=== PATIENT | female | born 1985 | race Hispanic/Latino ===

== ENCOUNTER → 2019-02-14 | Day surgery (SDC) | payer OTHER ==
[~2019-02-14] MED LIST: GLUCAGON FOR INJ 1 MG VIAL ONE; PROPOFOL IV EMULSION 10 MG/ML 50 ML VIAL ONE
--- OUTSIDE RECORDS SUMMARY | 2019-02-14 11:36 | XMS REPORT ---
[facility] Address Unknown Phone Unavailable Care Team Providers Care Staff Antisubmarine Officer Name Role Phone Unavailable Unavailable Payers Payer Name Policy Type Policy Number Effective Date Expiration Date Problems This patient has no known problems. Allergies, Adverse Reactions, Alerts Allergy Name Allergy Type Status Severity Reaction(s) Onset Date Inactive Date Treating Clinician Comments No Known Allergies DA Active U 2017-10-12 00:00:00 Medications This patient has no known medications. Results Test Description Test Time Test Comments Text Results Atomic Results Result Comments URINALYSIS COMPLETE 2019-02-04 20:15:00 UA COLOR (test code=COLU) YELLOW YELLOW UA APPEARANCE (test code=APPU) CLEAR CLEAR UA GLUCOSE DIPSTICK (test code=DGLUU) norm mg/dL NEGATIVE UA BILIRUBIN DIPSTICK (test code=BILU) NEGATIVE mg/dL NEGATIVE UA KETONE DIPSTICK (test code=KETU) neg mg/dL NEGATIVE UA SPECIFIC GRAVITY (test code=SGU) 1.020 1.001-1.035 UA BLOOD DIPSTICK (test code=ETIENNE) 25 (1+) Jaiml/uL NEGATIVE UA PH DIPSTICK (test code=JOHN) 5.0 5.0-8.0 UA PROTEIN DIPSTICK (test code=PROU) neg mg/dL Neg-15 UA UROBILINIOGEN DIPSTICK (test code=URO) norm mg/dL 0.0-0.2 UA NITRITE DIPSTICK (test code=SOBEIDA) NEGATIVE NEGATIVE UA LEUKOCYTE ESTERASE DIPSTICK (test code=LEUU) NEGATIVE uL NEGATIVE UA WBC (test code=WBCU) NONE SEEN per HPF 0-5 UA RBC (test code=RBCU) 0-3 per HPF 0-5 UA EPITHELIAL CELLS (test code=EPIU) Few (2-5/hpf) per HPF Few UA BACTERIA (test code=BACU) TRACE per HPF NONE UA MUCUS (test code=MUCU) FEW per LPF NONE-FEW URINALYSIS W/O [id number] 20:15:00* Test Item Value Reference Range Comments UA LEUKOCYTE ESTERASE W REFLEX (test code=LEUUR) NEGATIVE NEGATIVE UR HCG [id number] 20:15:00* Test Item Value Reference Range Comments UR HCG QUAL (test code=HCGQLU) NEGATIVE This HCGQL test is NOT applicable for MALE patients.Check with nurse about probable order error.If Tumor Marker Test needed, nurse should order test "HCGTU"(Test #550.94019) URINALYSIS [id number] 20:12:00* Test Item Value Reference Range Comments UA COLOR (test code=COLU) YELLOW YELLOW UA APPEARANCE (test code=APPU) CLEAR CLEAR UA GLUCOSE DIPSTICK (test code=DGLUU) norm mg/dL NEGATIVE UA BILIRUBIN DIPSTICK (test code=BILU) NEGATIVE mg/dL NEGATIVE UA KETONE DIPSTICK (test code=KETU) neg mg/dL NEGATIVE UA SPECIFIC GRAVITY (test code=SGU) 1.020 1.001-1.035 UA BLOOD DIPSTICK (test code=ETIENNE) 25 (1+) Jamil/uL NEGATIVE UA PH DIPSTICK (test code=JOHN) 5.0 5.0-8.0 UA PROTEIN DIPSTICK (test code=PROU) neg mg/dL Neg-15 UA UROBILINIOGEN DIPSTICK (test code=URO) norm mg/dL 0.0-0.2 UA NITRITE DIPSTICK (test code=SOBEIDA) NEGATIVE NEGATIVE UA LEUKOCYTE ESTERASE DIPSTICK (test code=LEUU) NEGATIVE uL NEGATIVE UA WBC (test code=WBCU) per HPF 0-5 UA RBC (test code=RBCU) per HPF 0-5 UA EPITHELIAL CELLS (test code=EPIU) per HPF Few UA BACTERIA (test code=BACU) per HPF NONE URINALYSIS W/O [id number] 20:12:00* Test Item Value Reference Range Comments UA LEUKOCYTE ESTERASE W REFLEX (test code=LEUUR) NEGATIVE NEGATIVE UR HCG [id number] 20:12:00* Test Item Value Reference Range Comments UR HCG QUAL (test code=HCGQLU) NEGATIVE This HCGQL test is NOT applicable for MALE patients.Check with nurse about probable order error.If Tumor Marker Test needed, nurse should order test "HCGTU"(Test #550.28200) URINALYSIS [id number] 20:11:00* Test Item Value Reference Range Comments UA COLOR (test code=COLU) YELLOW YELLOW UA APPEARANCE (test code=APPU) CLEAR CLEAR UA GLUCOSE DIPSTICK (test code=DGLUU) norm mg/dL NEGATIVE UA BILIRUBIN DIPSTICK (test code=BILU) NEGATIVE mg/dL NEGATIVE UA KETONE DIPSTICK (test code=KETU) neg mg/dL NEGATIVE UA SPECIFIC GRAVITY (test code=SGU) 1.020 1.001-1.035 UA BLOOD DIPSTICK (test code=ETIENNE) 25 (1+) Jamil/uL NEGATIVE UA PH DIPSTICK (test code=JOHN) 5.0 5.0-8.0 UA PROTEIN DIPSTICK (test code=PROU) neg mg/dL Neg-15 UA UROBILINIOGEN DIPSTICK (test code=URO) norm mg/dL 0.0-0.2 UA NITRITE DIPSTICK (test code=SOBEIDA) NEGATIVE NEGATIVE UA LEUKOCYTE ESTERASE DIPSTICK (test code=LEUU) uL NEGATIVE UA WBC (test code=WBCU) per HPF 0-5 UA RBC (test code=RBCU) per HPF 0-5 UA EPITHELIAL CELLS (test code=EPIU) per HPF Few UA BACTERIA (test code=BACU) per HPF NONE URINALYSIS W/O [id number] 20:11:00* Test Item Value Reference Range Comments UA LEUKOCYTE ESTERASE W REFLEX (test code=LEUUR) NEGATIVE UR HCG [id number] 20:11:00* Test Item Value Reference Range Comments UR HCG QUAL (test code=HCGQLU) URINALYSIS [id number] 20:11:00* Test Item Value Reference Range Comments UA COLOR (test code=COLU) YELLOW YELLOW UA APPEARANCE (test code=APPU) CLEAR CLEAR UA GLUCOSE DIPSTICK (test code=DGLUU) norm mg/dL NEGATIVE UA BILIRUBIN DIPSTICK (test code=BILU) NEGATIVE mg/dL NEGATIVE UA KETONE DIPSTICK (test code=KETU) neg mg/dL NEGATIVE UA SPECIFIC GRAVITY (test code=SGU) 1.020 1.001-1.035 UA BLOOD DIPSTICK (test code=ETIENNE) 25 (1+) Jamil/uL NEGATIVE UA PH DIPSTICK (test code=JOHN) 5.0 5.0-8.0 UA PROTEIN DIPSTICK (test code=PROU) neg mg/dL Neg-15 UA UROBILINIOGEN DIPSTICK (test code=URO) norm mg/dL 0.0-0.2 UA NITRITE DIPSTICK (test code=SOBEIDA) NEGATIVE NEGATIVE UA LEUKOCYTE ESTERASE DIPSTICK (test code=LEUU) uL NEGATIVE UA WBC (test code=WBCU) per HPF 0-5 UA RBC (test code=RBCU) per HPF 0-5 UA EPITHELIAL CELLS (test code=EPIU) per HPF Few UA BACTERIA (test code=BACU) per HPF NONE URINALYSIS W/O [id number] 20:11:00* Test Item Value Reference Range Comments UA LEUKOCYTE ESTERASE W REFLEX (test code=LEUUR) NEGATIVE UR HCG [id number] 20:11:00* Test Item Value Reference Range Comments UR HCG QUAL (test code=HCGQLU) PROTHROMBIN [id number] 20:01:00* Test Item Value Reference Range Comments PROTHROMBIN TIME PATIENT (test code=PTP) 9.9 seconds 9.0-13.0 INTERNATIONAL NORMAL RATIO (test code=INR) 1.0 0.8-1.2 The therapeutic range for oral anticoagulant therapy formost indications is an international normalized ratio (INR)of between 2.0 and 3.0. The recommended therapeutic INRrange for various clinical situations is listed below: Clinical Situation INR range Pulmonary e mbolism treatment (2.0-3.0)Venous thrombosis treatmentVenous thrombosis prophylaxis (high risk surgery)Prevention of systemic embolism from: Acute myocardial infarction Valvular heart disease Atrial fibrillation Mechanical prosthetic heart valves (2.5-3.5) IS PATIENT ON ANTICOAGULANTS? NTHROMBOPLASTIN TIME [id number] 20:01:00* Test Item Value Reference Range Comments THROMBOPLASTIN TIME PARTIAL (test code=PTT) 26.1 seconds 25.5-34.3 Therapeutic Range for patients on Heparin Therapy is 2 to2.5 times their baseline PTT level. IS PATIENT ON ANTICOAGULANTS? NCOMPREHENSIVE METABOLIC [id number] 19:58:00 * Test Item Value Reference Range Comments SODIUM (test code=NA) 137 mmol/L 136-145 POTASSIUM (test code=K) 3.6 mmol/L 3.5-5.1 CHLORIDE (test code=CL) 101 mmol/L 101-109 CARBON DIOXIDE (test code=CO2) 29.2 mmol/L 21-32 ANION GAP (test code=GAP) 10 mmol/L 10-20 GLUCOSE (test code=GLU) 92 mg/dL 74-106 BLOOD UREA NITROGEN (test code=BUN) 12 mg/dL 3-21 CREATININE (test code=CREAT) 0.72 mg/dL 0.55-1.3 BUN/CREATININE RATIO (test code=BUN/CREA) 16.7 10-20 TOTAL PROTEIN (test code=PROT) 8.0 g/dL 6.5-8.4 ALBUMIN (test code=ALB) 3.6 g/dL 3.4-4.8 GLOBULIN (test code=GLOB) 4.4 G/DL 1-10 ALBUMIN/GLOBULIN RATIO (test code=A/G) 0.82 RATIO 0.75-1.50 CALCIUM (test code=CA) 8.4 mg/dL 8.4-10.2 BILIRUBIN TOTAL (test code=BILT) 0.30 mg/dL 0.0-1.0 SGOT/AST (test code=AST) 15 U/L 6-32 SGPT/ALT (test code=ALT) 22 U/L 12-78 Note: Change in REFERENCE RANGE due to new reagent method. ALKALINE PHOSPHATASE TOTAL (test code=ALKP) 102 U/L 38-126 COMPREHENSIVE METABOLIC [id number] 19:53:00* Test Item Value Reference Range Comments SODIUM (test code=NA) 137 mmol/L 136-145 POTASSIUM (test code=K) 3.6 mmol/L 3.5-5.1 CHLORIDE (test code=CL) 101 mmol/L 101-109 CARBON DIOXIDE (test code=CO2) 29.2 mmol/L 21-32 ANION GAP (test code=GAP) 10 mmol/L 10-20 GLUCOSE (test code=GLU) 92 mg/dL 74-106 BLOOD UREA NITROGEN (test code=BUN) 12 mg/dL 3-21 CREATININE (test code=CREAT) 0.72 mg/dL 0.55-1.3 BUN/CREATININE RATIO (test code=BUN/CREA) 16.7 10-20 TOTAL PROTEIN (test code=PROT) gram/dL 6.4-8.2 ALBUMIN (test code=ALB) g/dL 3.4-5.0 GLOBULIN (test code=GLOB) g/dL 2.7-4.2 ALBUMIN/GLOBULIN RATIO (test code=A/G) 0.75-1.50 CALCIUM (test code=CA) 8.4 mg/dL 8.4-10.2 BILIRUBIN TOTAL (test code=BILT) mg/dL 0.2-1.2 SGOT/AST (test code=AST) IUnit/L 15-37 SGPT/ALT (test code=ALT) U/L 10-69 ALKALINE PHOSPHATASE TOTAL (test code=ALKP) IUnit/L 45-117 CBC W/AUTO [id number] 19:47:00* Test Item Value Reference Range Comments WHITE BLOOD CELL (test code=WBC) 9.9 K/mm3 4.5-12.5 RED BLOOD CELL (test code=RBC) 4.75 mill/mm3 3.7-5.2 HEMOGLOBIN (test code=HGB) 12.6 gram/dL 11.5-15.5 HEMATOCRIT (test code=HCT) 39.4 % 36.0-46.0 MEAN CELL VOLUME (test code=MCV) 82.9 fL 80-98 MEAN CELL HGB (test code=MCH) 26.5 picogram 27.0-33.0 MEAN CELL HGB CONCETRATION (test code=MCHC) 32.0 gram/dL 33.0-36.0 RED CELL DISTRIBUTION WIDTH (test code=RDW) 13.9 % 11.6-16.2 RED CELL DISTRIBUTION WIDTH SD (test code=RDW-SD) 42.8 fL 37.0-51.0 PLATELET COUNT (test code=PLT) 337 K/mm3 150-450 MEAN PLATELET VOLUME (test code=MPV) 9.6 fL 6.7-11.0 NEUTROPHIL % (test code=NT%) 55.7 % 39.0-69.0 LYMPHOCYTE % (test code=LY%) 32.7 % 25.0-55.0 MONOCYTE % (test code=MO%) 6.3 % 0.0-10.0 EOSINOPHIL % (test code=EO%) 4.8 % 0.0-5.0 BASOPHIL % (test code=BA%) 0.3 % 0.0-1.0 NEUTROPHIL # (test code=NT#) 5.53 K/mm3 1.8-7.7 LYMPHOCYTE # (test code=LY#) 3.24 K/mm3 1.0-5.0 MONOCYTE # (test code=MO#) 0.62 K/mm3 0-0.8 EOSINOPHIL # (test code=EO#) 0.48 K/mm3 0.0-0.5 BASOPHIL # (test code=BA#) 0.03 K/mm3 0.0-0.2 MANUAL DIFF REQUIRED (test code=MDIFF) NO
[2019-02-14 16:25] VITALS: BP 111/79
[2019-02-14 16:44] LABS: WBC,FECAL (FECAL LACTOFERRIN) POSITIVE (NEGATIVE)
--- NOTE | 2019-02-14 22:42 | Operative Report ---
DATE OF PROCEDURE: 02/14/2019 SURGEON: Sharif Lynch MD PROCEDURE: EGD with biopsies and colonoscopy with polypectomy and biopsies. INDICATIONS FOR EGD: Upper abdominal pain, excessive belching. INDICATIONS FOR COLONOSCOPY: Bright red blood per rectum. MEDICATIONS: The patient was done under MAC, please see anesthesiologist's note. PROCEDURE IN DETAIL: With the patient in the left lateral decubitus position, a flexible fiberoptic Olympus gastroscope was introduced into the esophagus under direct visualization without any difficulty. There were some patchy erythema noted in the distal esophagus. The scope was then advanced with ease into the stomach. Mucosa overlying the antrum and the body revealed some patchy erythema and low-grade to moderate edema and biopsies were obtained and sent to stain for H. pylori. Pylorus was of normal contour and shape, it was intubated with ease and the scope was advanced all the way to the second portion of the duodenum. The scope was then withdrawn slowly and biopsies were obtained from the second portion as well as the duodenal bulb to rule out sprue. The scope was then withdrawn back into the stomach and retroflexed. Mucosa overlying the fundus and the cardia appeared to be within normal limits. The scope was then straightened out. The stomach was decompressed. Scope was subsequently withdrawn. The patient tolerated the procedure well. IMPRESSION: 1. Distal esophagitis, mild. 2. Gastritis, biopsied. Biopsies sent to stain for Helicobacter pylori. 3. Rule out sprue. PLAN: Follow up histology. Initiate Protonix 40 mg one p.o. q.a.m. before meals. The patient was then turned around. After adequate lubrication of the anal canal, a flexible fiberoptic Olympus colonoscope was inserted into the rectum with ease and advanced all the way to the cecum. Mucosa overlying the cecum overall appeared to be within normal limits. The ileocecal valve was intubated and the scope was advanced into the terminal ileum. Biopsies were obtained. The scope was then withdrawn back into the colon. It was then withdrawn slowly. There were some patchy mild inflammatory changes noted in the ascending colon. One polyp was snared from the hepatic flexure. The transverse, descending, sigmoid, and rectum revealed some diffuse [id number] inflammatory changes and multiple random biopsies were obtained. The scope was then retroflexed into the distal rectum and the area around the dentate line appeared to be within normal limits. The scope was then straightened out, it was subsequently withdrawn after securing an adequate stool specimen, that was sent for the appropriate stool studies. The patient tolerated the procedure well. IMPRESSION: 1. Pancolitis, random biopsies obtained. 2. Hepatic flexure polyp removed per snare electrocautery. 3. Proctitis, mild. PLAN: Follow up histology. Follow up stool studies. Initiate Florastor one p.o. b.i.d. Check IBD panel, CRP, and sedimentation rate. Sharif Lynch MD [facility] [place]LE[place] /[id number]
[2019-02-15 13:51] LABS: C DIFFICILE TOXIN A&B AMP PROB **POSITIVE** (NEGATIVE)
== END | disposition home or self-care (01) ==
LOC: OR 11:34
PROVIDERS: ATTEND Internal Medicine Gastroenterology
DX: K52.9 Noninfective gastroenteritis and colitis, unspecified (principal); K63.5 Polyp of colon; K29.70 Gastritis, unspecified, without bleeding; K29.80 Duodenitis without bleeding; K21.9 Gastro-esophageal reflux disease without esophagitis; K62.89 Other specified diseases of anus and rectum; K20.9 Esophagitis, unspecified; E66.9 Obesity, unspecified; Z68.32 Body mass index [BMI] 32.0-32.9, adult; Z86.19 Personal history of other infectious and parasitic diseases; Z83.79 Family history of other diseases of the digestive system
CPT/HCPCS: 36415; 43239; 45380; 45385; 81025; 83630; 83993; 85651; 86140; 86256; 86671; 87045; 87177; 87328; 87493; J1610; J2704; 45384

== ENCOUNTER 2024-02-22 20:33 | Emergency (ER) | payer BC ==
[~2024-02-22] VITALS: Ht 165.1 cm; Wt 90.7 kg
[2024-02-22 22:52] LABS: BASOPHILS # (AUTO) 0.1 (0.0-0.1); BASOPHILS % 0.7 % (0.0-1.0); EOSINOPHILS # (AUTO) 1.2 (0.0-0.4); EOSINOPHILS % 14.1 % (0.0-6.0); HEMATOCRIT 38.6 % (34.2-44.1); HEMOGLOBIN 12.5 g/dL (12.0-16.0); LYMPHOCYTES # (AUTO) 2.5 (1.0-3.2); LYMPHOCYTES % 29.3 % (18.0-39.1); MEAN CORPUSCULAR HEMOGLOBIN 28.9 pg (28-32); MEAN CORPUSCULAR HGB CONC 32.4 g/dL (31-35); MEAN CORPUSCULAR VOLUME 89.1 fL (81-99); MONOCYTES # (AUTO) 0.6 (0.2-0.8); MONOCYTES % 7.4 % (4.4-11.3); NEUTROPHILS % 48.3 % (38.7-80.0); PLATELET COUNT 309 x10e3/uL (140-360); RED BLOOD COUNT 4.33 x10e6/uL (3.6-5.1); RED CELL DISTRIBUTION WIDTH 13.2 % (11.7-14.4); WHITE BLOOD COUNT 8.35 x10e3/uL (4.8-10.8)
[2024-02-22 23:05] LABS: INR 0.95; PROTHROMBIN TIME 13.2 seconds (11.9-14.5)
[2024-02-22 23:06] LABS: PARTIAL THROMBOPLASTIN TIME 30.2 seconds (23.8-35.5)
[2024-02-22 23:09] LABS: ALBUMIN 4.1 g/dL (3.5-5.0); ALBUMIN/GLOBULIN RATIO 1.1 (0.8-2.0); ANION GAP 13.6 mmol/L (8-16); BILIRUBIN,TOTAL 0.3 mg/dL (0.2-1.2); CALCIUM 9.2 mg/dL (8.4-10.2); CREATININE, SERUM 0.78 mg/dL (0.57-1.11); POTASSIUM 3.6 mmol/L (3.5-5.1); TOTAL PROTEIN 7.9 g/dL (6.5-8.1)
[2024-02-22 23:38] VITALS: TEMP 98.6
[2024-02-23 00:37] VITALS: PULSE 96; RESP 17
[2024-02-23 01:32] VITALS: BP 119/77; PULSE 84; RESP 17; TEMP 98.1; O2SAT 100
[2024-02-23] MEDS ORDERED: CLEOCIN HCL300 MG PO (13:07)
[2024-02-23] MEDS ORDERED: LOESTRIN FE 1-1 EACH (13:07)
[2024-02-23] MEDS ORDERED: [UNRECOGNIZED DRUG - OTHER] PO (13:08)
== END 2024-02-23 01:39 | disposition home or self-care (01) ==
LOC: ER 20:53
DX: K62.5 Hemorrhage of anus and rectum (principal); K76.0 Fatty (change of) liver, not elsewhere classified
CPT/HCPCS: 36415; 74176; 80053; 84702; 85025; 85610; 85730; 99283

== ENCOUNTER → 2024-03-02 | Day surgery (SDC) | payer BC ==
[~2024-03-02] MED LIST changes: +CLEOCIN HCL300 MG PO; +FENTANYL CITRATE/PF 100MCG/2 ML INJ ONE; +FLORASTOR250 MG PO; -GLUCAGON FOR INJ 1 MG VIAL ONE; +HYOSCYAMINE SULFATE 0.5 MG/ML INJ ONE; +LIDOCAINE HCL 2% LOCAL INJ 5 ML SDV VIAL INJ ONE; +LOESTRIN FE 1-1 EACH; +METHYLPREDNISOLONE SOD SUCC 125 MG/2ML VIAL ONE; +PROPOFOL IV EMULSION 10 MG/ML 20 ML VIAL ONE; +PROPOFOL IV EMULSION 10 MG/ML 50 ML VIAL IV ONE; -PROPOFOL IV EMULSION 10 MG/ML 50 ML VIAL ONE; +[UNRECOGNIZED DRUG - OTHER] PO
[2024-03-02 12:05] VITALS: TEMP 97
[2024-03-02] MEDS: METHYLPREDNISOLONE SOD SUCC 125 MG/2ML VIAL IV ONE (12:14)
[2024-03-02 12:25] VITALS: BP 123/80; PULSE 100; RESP 18; O2SAT 99
[2024-03-02 12:48] LABS: WBC,FECAL (FECAL LACTOFERRIN) POSITIVE (NEGATIVE)
== END | disposition home or self-care (01) ==
LOC: OR 10:45
PROVIDERS: ATTEND Internal Medicine Gastroenterology
DX: K52.9 Noninfective gastroenteritis and colitis, unspecified (principal); Z86.010 Personal history of colon polyps; K62.89 Other specified diseases of anus and rectum; Z71.3 Dietary counseling and surveillance; E66.9 Obesity, unspecified; Z91.041 Radiographic dye allergy status; Z91.013 Allergy to seafood; Z68.32 Body mass index [BMI] 32.0-32.9, adult; Z86.19 Personal history of other infectious and parasitic diseases
CPT/HCPCS: 45380; 81025; 83630; 83993; 86140; 87045; 87177; 87324; 87328; 87449; J1980; J2001; J2704 ×2; J2919; J3010; 45378

== ENCOUNTER → 2024-10-02 | Day surgery (SDC) | payer BC ==
[~2024-10-02] MED LIST changes: +ESMOLOL HCL 100MG/10ML 10 MG/ML VIAL ONE; -FENTANYL CITRATE/PF 100MCG/2 ML INJ ONE; +GLUCAGON FOR INJ 1 MG VIAL ONE; +LACTATED RINGER'S 1,000 ML ONE; +LIALDA1.2 GM PO; +MESALAMINE1000 MG RC; -METHYLPREDNISOLONE SOD SUCC 125 MG/2ML VIAL ONE; +MIDAZOLAM HCL 2 MG/2 ML VIAL ONE; -PROPOFOL IV EMULSION 10 MG/ML 50 ML VIAL IV ONE
[2024-10-02 16:00] VITALS: BP 110/70; PULSE 90; RESP 16; O2SAT 99
[2024-10-02 16:23] LABS: WBC,FECAL (FECAL LACTOFERRIN) POSITIVE (NEGATIVE)
[2024-10-02 16:24] LABS: CDIFF AG QUIK CHEK NEGATIVE (NEGATIVE); CDIFF TOX QUIK CHEK NEGATIVE (NEGATIVE)
== END | disposition home or self-care (01) ==
LOC: OR 12:04
PROVIDERS: ATTEND Internal Medicine Gastroenterology
DX: K51.019 Ulcerative (chronic) pancolitis with unspecified complications (principal); Z86.0100 Personal history of colon polyps, unspecified; K62.89 Other specified diseases of anus and rectum; K64.8 Other hemorrhoids; Z71.3 Dietary counseling and surveillance; Z86.19 Personal history of other infectious and parasitic diseases; F41.9 Anxiety disorder, unspecified; Z91.041 Radiographic dye allergy status; Z68.29 Body mass index [BMI] 29.0-29.9, adult
CPT/HCPCS: 45380; 81025; 83630; 83993; 86140; 87045; 87177; 87324; 87328; 87449; J1610; J1980; J2003; J2250; J2704; J7121; 45378